=== PATIENT | female | born 1960 | race Caucasian/White ===

== ENCOUNTER → 2019-11-23 07:33 | Outpatient (CLI) | payer BC, SELFPAY ==
--- NOTE | ~2019-11-23 | US_ITS ---
EXAMINATION: US right upper quadrant DATE: 11/23/2019 08:15 INDICATION: Abnormal liver function tests. TECHNIQUE: Multiple grayscale and Doppler ultrasound images of the abdomen were obtained. COMPARISON: None FINDINGS: The visualized portions of the head, body, and tail of the pancreas are normal. There is di ffuse hepatic steatosis. No liver surface nodularity. There is normal flow in main portal vein. The g allbladder is normal in size. No gallstones or gallbladder wall thickening. There was no sonographic Shoemaker sign. The common duct is normal and measures 3 mm. IMPRESSION: 1. Diffuse hepatic steatosis. Reviewed, dictated and finalized at location A.
== END ==
PROVIDERS: PCP Family Medicine; Visit Provider Family Medicine
DX: R74.0 Nonspecific elevation of levels of transaminase and lactic acid dehydrogenase [LDH] (principal); K76.0 Fatty (change of) liver, not elsewhere classified
CPT/HCPCS: 76705

== ENCOUNTER 2020-01-26 14:17 | Emergency (ER) | payer BC, SELFPAY ==
--- NOTE | ~2020-01-26 | XR_ITS ---
XR ankle LT min 3V 01/26/2020 14:37 Indication: Left ankle pain and swelling Procedure: 4 views left ankle Comparison: No prior studies for comparison. Findings: There is a transverse nondisplaced distal fibular fracture with adjacent soft tissue swelli ng. Ankle mortise intact. There are degenerative calcaneal enthesophytes. Talar dome is normal. Impression: 1: Transverse nondisplaced distal fibular fracture. Reviewed, dictated and finalized at location A. Impression: 1: Transverse nondisplaced distal fibular fracture.
[2020-01-26 14:21] VITALS: BP 129/69; PULSE 95; RESP 12; TEMP 36.8; O2SAT 98
--- NOTE | 2020-01-26 14:38 | ED.LOWEXIN ---
HPI - Extremity Injury (Lower) General Chief Complaint: Extremity Injury, Lower Stated Complaint: INJURED L ANKLE Time Seen by Provider: 01/26/20 14:38 Source: patient and RN notes reviewed History of Present Illness HPI Narrative: Patient is a 59-year-old female who presents the urgent care with complaints of left ankle pain. Patient states that she stepped in a hole in her yard approximately 2 hours prior to arrival. Patient states she has not done anything for her pain and states that she is only feeling pain with weightbearing activity. Patient denies hitting her head or any other injuries from the fall. No other acute complaints. No acute distress noted. Patient aware of the plan of care. Some parts of this dictation were generated by voice recognition software and may contain typographical and/or grammatical inaccuracies. Related Data Home Medications Medication Instructions Recorded Confirmed aspirin 81 mg tablet,delayed 81 mg PO DAILY 06/28/19 01/26/20 release Allergies Allergy/AdvReac Type Severity Reaction Status Date / Time atorvastatin Allergy Unknown muscle pain Verified 01/26/20 14:22 Review of Systems Review of Systems: Narrative: CONSTITUTIONAL: Denies fever, chills, or sweats. EYES: Denies visual changes, redness, or discharge. ENT: Denies rhinorrhea, congestion, sore throat, or otalgia. CARDIOVASCULAR: Denies chest pain, palpitations, or edema. RESPIRATORY: Denies cough or dyspnea. GASTROINTESTINAL: Denies abdominal pain, nausea, vomiting, or diarrhea. GENITOURINARY: Denies dysuria or hematuria. SKIN: Denies rash or itching. MUSCULOSKELETAL: Reports of left ankle pain with weightbearing NEUROLOGIC: Denies headache, numbness, or weakness. All other systems reviewed are negative, except as documented in HPI. PMFSH Social History Social History (Reviewed 11/08/19 @ 09:58 by Leslie Oneill [facility]) Smoking status: Never smoker Alcohol intake: never Comments At the time of my signature, I reviewed and agree with the nursing past medical, surgical, social, and family history. There is no relevant family history pertinent to the patient complaint. Exam Narrative: Exam Narrative: GENERAL: This is a well-nourished, well-developed patient, in no apparent distress. HEAD: normocephalic, atraumatic. EYES: PERRL. Sclera clear/white. Vision is grossly intact. EARS: External ears normal NOSE: External nose normal with no obvious nasal discharge, nares without redness, no rhinorrhea. THROAT: Mucous membranes moist NECK: Neck supple SKIN: warm, intact with no suspicious lesions or rash, good texture and turgor. NEURO: awake, alert, and oriented to person, place and time. There were no obvious focal neurologic abnormalities. EXTREMITIES: Moderate edema and likely fractured left fibula/left malleolus. Mild ecchymosis to the left malleolus with moderate tenderness. Positive strong left pedal pulse with capillary refill less than 2 seconds. Range of motion not tested due to pain. Course Vital Signs Vital signs: Vital Signs Temperature 98.3 F 01/26/20 14:21 Pulse Rate 95 01/26/20 14:21 Respiratory Rate 12 01/26/20 14:21 Blood Pressure 129/69 01/26/20 14:21 Pulse Oximetry 98 01/26/20 14:21 Temperature 98.3 F 01/26/20 14:21 Pulse Rate 95 01/26/20 14:21 Respiratory Rate 12 01/26/20 14:21 Blood Pressure 129/69 01/26/20 14:21 Pulse Oximetry 98 01/26/20 14:21 reviewed Procedures Orthopedic Splinting/Casting Injury #1: Side: left Lower Extremity Injury Location: ankle OCL: posterior (short leg) Pre-Procedure Neuro Vascular Exam: normal Post-Procedure Neuro Vascular Exam: normal Other Orthopedic Equipment: crutches (home supply) Additional Comments: Posterior short leg OCL placed to the left lower extremity due to left distal fibular fracture. Patient educated on the care of the OCL. Educated on the use of crutches even
== END 2020-01-26 15:20 | disposition home or self-care (01) ==
PROVIDERS: Emergency Provider Nurse Practitioner Family; PCP Family Medicine
DX: S82.425A Nondisplaced transverse fracture of shaft of left fibula, initial encounter for closed fracture (principal); W17.2XXA Fall into hole, initial encounter; Z79.82 Long term (current) use of aspirin; E78.00 Pure hypercholesterolemia, unspecified; I10 Essential (primary) hypertension
CPT/HCPCS: 29515; 73610; 99214; G0463

== ENCOUNTER 2020-05-29 07:33 | Outpatient (CLI) | payer BC, SELFPAY ==
--- NOTE | ~2020-05-29 | MM_ITS ---
EXAMINATION: MM screening lico BI w griffin HISTORY: Screening TECHNIQUE: Craniocaudal and mediolateral oblique 3-D tomosynthesis images were obtained and synthetic 2-D images were generated. CAD analysis was submitted and interpreted. COMPARISON: Comparison to multiple prior studies sequentially, with oldest reviewed study dated 04/02. BREAST PARENCHYMAL COMPOSITION: There are scattered areas of fibroglandular density. FINDINGS: There is no evidence of suspicious mass, calcification, or architectural distortion to sugg est malignancy in either breast. There has been no suspicious interval change. IMPRESSION: 1. No mammographic evidence of malignancy. 2. Recommend routine screening mammography in one year. BI-RADS Category 1: Negative Reviewed, dictated and finalized at location A. [employer]
== END 2020-05-29 07:34 | disposition home or self-care (01) ==
LOC: ANHIMG 07:35
PROVIDERS: PCP Family Medicine; Visit Provider Family Medicine
DX: Z12.31 Encounter for screening mammogram for malignant neoplasm of breast (principal)
CPT/HCPCS: 77063; 77067

== ENCOUNTER 2021-06-19 07:20 | Outpatient (CLI) | payer BC, SELFPAY ==
--- NOTE | ~2021-06-19 | MM_ITS ---
EXAMINATION: MM screening lico BI w griffin HISTORY: Screening TECHNIQUE: Craniocaudal and mediolateral oblique 3-D tomosynthesis images were obtained and synthetic 2-D images were generated. CAD analysis was submitted and interpreted. COMPARISON: 04/29/2016 BREAST PARENCHYMAL COMPOSITION: There are scattered areas of fibroglandular density. FINDINGS: There is no evidence of suspicious mass, calcification, or architectural distortion to sugg est malignancy in either breast. There has been no suspicious interval change. IMPRESSION: 1. No mammographic evidence of malignancy. 2. Recommend routine screening mammography in one year. BI-RADS Category 1: Negative Reviewed, dictated and finalized at location A. [employer]
== END 2021-06-19 07:21 | disposition home or self-care (01) ==
LOC: ANHIMG 07:22
PROVIDERS: PCP Family Medicine; Visit Provider Family Medicine
DX: Z12.31 Encounter for screening mammogram for malignant neoplasm of breast (principal)
CPT/HCPCS: 77063; 77067

== ENCOUNTER → 2021-08-08 09:58 | Outpatient (CLI) | payer BC, SELFPAY ==
--- NOTE | ~2021-08-08 | XR_ITS ---
EXAM: XR ankle LT min 3V HISTORY: M25.572 - Pain in left ankle and joints of left foot COMPARISON: 01/26/2020 FINDINGS: No acute fracture or dislocation. Moderate joint effusion. Mild degenerative tibiotalar brenda int changes. Achilles and plantar enthesopathy. Old, small malleolus tip avulsion fracture fragment. Healed lateral malleolus avulsion fragment. IMPRESSION: No acute osseous finding. Moderate left ankle joint effusion. Reviewed, dictated and finalized at location K.
== END ==
PROVIDERS: Visit Provider Physician Assistant
DX: M25.572 Pain in left ankle and joints of left foot (principal); M25.472 Effusion, left ankle
CPT/HCPCS: 73610

== ENCOUNTER 2021-10-26 00:53 | Day surgery (SDC) | payer BC, SELFPAY ==
[2021-08-26 13:24] VITALS: BMI 34.0
[2021-10-06 15:06] VITALS: BMI 34.0
--- NOTE | 2021-10-23 13:28 | PM.HPGS ---
History of Present Illness History of Present Illness Consent: Risks, benefits, and alternatives have been discussed and questions answered. Patient agrees to proceed with procedure. Chief complaint: neoplasm screening Narrative: Phoebe Clifford is a 61 year old female referred for colon cancer screening Review of Systems Review of Systems: All systems reviewed & are unremarkable except as noted in HPI and below PMFSH Past Medical History Medical History Hepatitis C antibody test negative (12/23/16) Surgical History Surgical History H/O adenoidectomy H/O colonoscopy Family History Family History Father Diabetes mellitus Hypertension Family history of coronary artery disease Mother Diabetes mellitus Hypertension Family history of elevated blood lipids Sibling Hypertension Family history of elevated blood lipids Family history of coronary artery disease Grandparent Acute myocardial infarction, Onset Age: 40 Carcinoma of colon Family history of coronary artery disease, Onset Age: 40 Other No family history of cardiovascular disease Social History Social History Smoking status: Never smoker Alcohol intake: never Substance use: never Substance use type: does not use Living arrangements: with family Spiritual care concerns: No Meds Home Medications and Allergies Home Medications Medication Instructions Recorded Confirmed Type aspirin 81 mg tablet,delayed 81 mg PO DAILY 06/28/19 10/26/21 History release (Adult Low Dose Aspirin) cholecalciferol (vitamin D3) 50 50 mcg PO DAILY 07/14/20 10/26/21 History mcg (2,000 unit) capsule omega 0-ehn-roj-fish oil 1,200 mg 1,200 cap PO DAILY 07/14/20 10/26/21 History (144 mg-216 mg) capsule (Fish Oil) albuterol sulfate 90 mcg/actuation 2 puff inhalation Q4H PRN 07/30/20 10/26/21 Rx aerosol inhaler (ProAir HFA) shortness of breath or wheezing #8.5 grams budesonide-formoterol HFA 160 2 puff inhalation Q12H #10.2 grams 07/30/20 10/26/21 Rx mcg-4.5 mcg/actuation aerosol inhaler (Symbicort) quinapril 20 See Rx Instructions .Route 06/29/21 10/26/21 Rx mg-hydrochlorothiazide 12.5 mg .COMPLEX #90 tabs tablet simvastatin 20 mg tablet See Rx Instructions .Route 06/29/21 10/26/21 Rx .COMPLEX #90 tabs Allergies Allergy/AdvReac Type Severity Reaction Status Date / Time atorvastatin AdvReac Unknown muscle pain Verified 10/26/21 06:25 Exam Const: General: alert Orientation/consciousness: patient oriented x3 Resp: Auscultation: clear to auscultation bilaterally Cardio: Rhythm: regular rhythm GI: GI Palp: Yes Soft to palpation and No Tenderness to palpation present (GI) Neuro: General: patient oriented x3 Assessment and Plan Assessment and plan (1) Colon cancer screening: Code(s): Z12.11 - Encounter for screening for malignant neoplasm of colon Status: Acute Assessment and Plan: Colonoscopy with possible biopsy or polypectomy or cautery or injection of substances.
[2021-10-26 06:27] VITALS: BP 159/78; PULSE 79; RESP 18; TEMP 36.1; O2SAT 100; BMI 32.8
[2021-10-26] MEDS: LACTATED RINGERS 1,000 ML 150 ML IV CONT (06:38)
--- NOTE | 2021-10-26 07:16 | WPDANESEPPF ---
Anes - Initial Pre Proc Eval Procedure: Operation Date: 10/26/21 07:30 Proposed Procedures p Screening Colonoscopy - Evan Uriarte MD Date/Time: 10/26/21 07:16 Surgeon: Evan Uriarte MD Pre Op Diagnosis: neoplasm screening Patient Data Age: 61 Gender: F Height: 1.6 m Weight: 84 kg Last Vital Signs Temp 97.0 F L 10/26/21 06:27 Pulse 79 10/26/21 06:27 Resp 18 10/26/21 06:27 BP 159/78 H 10/26/21 06:27 Pulse Ox 100 10/26/21 06:27 O2 Del Method Room Air 10/26/21 06:27 Allergies Allergy/AdvReac Type Severity Reaction Status Date / Time atorvastatin AdvReac Unknown muscle pain Verified 10/26/21 06:25 Home Medications Medication Instructions Recorded Confirmed Type aspirin 81 mg tablet,delayed 81 mg PO DAILY 06/28/19 10/26/21 History release (Adult Low Dose Aspirin) cholecalciferol (vitamin D3) 50 50 mcg PO DAILY 07/14/20 10/26/21 History mcg (2,000 unit) capsule omega 8-hln-xdj-fish oil 1,200 mg 1,200 cap PO DAILY 07/14/20 10/26/21 History (144 mg-216 mg) capsule (Fish Oil) albuterol sulfate 90 mcg/actuation 2 puff inhalation Q4H PRN 07/30/20 10/26/21 Rx aerosol inhaler (ProAir HFA) shortness of breath or wheezing #8.5 grams budesonide-formoterol HFA 160 2 puff inhalation Q12H #10.2 grams 07/30/20 10/26/21 Rx mcg-4.5 mcg/actuation aerosol inhaler (Symbicort) quinapril 20 See Rx Instructions .Route 06/29/21 10/26/21 Rx mg-hydrochlorothiazide 12.5 mg .COMPLEX #90 tabs tablet simvastatin 20 mg tablet See Rx Instructions .Route 06/29/21 10/26/21 Rx .COMPLEX #90 tabs Patient hx anesthesia problems: none Family hx anesthesia problems: none Results Review: All pre-operative results and documents have been reviewed as part of the pre-operative evaluation. [facility] Past Medical History Medical History (Updated 10/23/21 @ 13:28 by Evan Uriarte MD) Hepatitis C antibody test negative (12/23/16) Surgical History Surgical History H/O adenoidectomy H/O colonoscopy Family History Family History Father Diabetes mellitus Hypertension Family history of coronary artery disease Mother Diabetes mellitus Hypertension Family history of elevated blood lipids Sibling Hypertension Family history of elevated blood lipids Family history of coronary artery disease Grandparent Acute myocardial infarction, Onset Age: 40 Carcinoma of colon Family history of coronary artery disease, Onset Age: 40 Other No family history of cardiovascular disease Social History Social History (Updated 08/07/21 @ 15:29 by ALEXUS Ferris) Smoking status: Never smoker Alcohol intake: never Substance use: never Substance use type: does not use Living arrangements: with family Spiritual care concerns: No Anes - Eval Final PreProcedure Day of Procedure 10/26/21 07:16 Patient weight: obese Heart: regular rate and rhythm Lungs: clear to auscultation Airway: Mallampati scale class II Neurological: alert and oriented Last oral intake: >/= 8 hours ASA classification: III Emergent: no Anesthetic plan: proceed Anesthesia type and monitoring: general GIVS and standard monitoring Results Review: All pre-operative results and documents have been reviewed as part of the pre-operative evaluation. Informed Consent: The patient's anesthetic plan and its attendant risks and benefits were discussed with the patient/family/POA. Questions were solicited and answers provided to the satisfaction of the patient/family/POA.
[2021-10-26 07:44] VITALS: BP 117/68; PULSE 75; RESP 27; O2SAT 97
[2021-10-26 07:54] VITALS: BP 140/92; PULSE 79; RESP 21; O2SAT 100
[2021-10-26 08:04] VITALS: BP 150/88; PULSE 76; RESP 20; O2SAT 100
== END 2021-10-26 08:10 | disposition home or self-care (01) ==
PROVIDERS: PCP Family Medicine; Visit Provider Internal Medicine Gastroenterology
PROC: 0DJD8ZZ Inspection of Lower Intestinal Tract, Via Natural or Artificial Opening Endoscopic (ICD-10-PCS; CPT 45378; principal; 2021-10-26 07:30)
DX: Z12.11 Encounter for screening for malignant neoplasm of colon (principal); Z79.82 Long term (current) use of aspirin; Z79.51 Long term (current) use of inhaled steroids; E66.9 Obesity, unspecified; Z68.32 Body mass index [BMI] 32.0-32.9, adult
CPT/HCPCS: 45378; J2001; J2704; J7120

== ENCOUNTER 2022-06-29 08:03 | Outpatient (CLI) | payer BC, SELFPAY ==
--- NOTE | 2022-06-29 08:14 | EST_ITS ---
Patient Info Name: Phoebe Clifford Age: 61 years : 1960 Gender: Female Ht: 65 in Wt: 195 lbs BSA: 2.05 m2 HR: 76 bpm BP: 117 / 67 mmHg Heart Rhythm: Sinus Rhythm Technical Quality: Fair Exam Date: 06/29/2022 8:37 AM Exam Location: [facility] Pulmonary Patient Status: Outpatient Admit Date: 06/29/2022 Staff Ordering Physician: Hilda Hunt MD Expansion Joint Builder: Myah Gudino RDCS Attending Provider: Referring Physician: Gilbert QUINN; Exam Type: CA stress echo Study Info Indications - light headed R07.89 - Other chest pain Treadmill exercise stress echocardiogram is performed. Summary 1. 1. Negative Rusty exercise stress test for ischemic ST changes by ECG criteria. 2. 2. Good functional capacity, achieving 8 METs of workload. 3. 3. Hypertensive response to exercise. 4. 4. Appropriate HR response to exercise. 5. 5. Appropriate HR recovery at 1 minute post exercise. 6. 6. Negative stress echocardiogram for ischemia by wall motion analysis. 7. 7. Patient informed of the above results. Stress Echo Findings Left Ventricle Appropriate increase in LV endocardial thickening with systole. Appropriate augmentation of contractility with systole. No wall motion abnormality. Left Ventricle Normal LV systolic function, no wall motion abnormality. Protocol: Rusty Stress ECG Details Stage: REST Duration (min): 0 min : 50 sec Speed (mph): 0.0 Grade (%): 0 HR (bpm): 76 SBP (mmHg): 117 DBP (mmHg): 67 METS: --- Stage: REST Duration (min): 9 min : 35 sec Speed (mph): 0.0 Grade (%): 0 HR (bpm): 81 SBP (mmHg): 117 DBP (mmHg): 67 METS: --- Stage: STAGE 1 Duration (min): 1 min : 0 sec Speed (mph): 1.7 Grade (%): 10 HR (bpm): 98 SBP (mmHg): 117 DBP (mmHg): 67 METS: --- Stage: STAGE 1 Duration (min): 2 min : 0 sec Speed (mph): 1.7 Grade (%): 10 HR (bpm): 107 SBP (mmHg): 117 DBP (mmHg): 67 METS: --- Stage: STAGE 1 Duration (min): 3 min : 0 sec Speed (mph): 1.7 Grade (%): 10 HR (bpm): 108 SBP (mmHg): 159 DBP (mmHg): 69 METS: --- Stage: STAGE 2 Duration (min): 1 min : 0 sec Speed (mph): 2.5 Grade (%): 12 HR (bpm): 124 SBP (mmHg): 159 DBP (mmHg): 69 METS: --- Stage: STAGE 2 Duration (min): 2 min : 0 sec Speed (mph): 2.5 Grade (%): 12 HR (bpm): 133 SBP (mmHg): 205 DBP (mmHg): 60 METS: --- Stage: STAGE 2 Duration (min): 3 min : 0 sec Speed (mph): 2.5 Grade (%): 12 HR (bpm): 146 SBP (mmHg): 207 DBP (mmHg): 70 METS: --- Stage: STAGE 3 Duration (min): 0 min : 31 sec Speed (mph): 0.0 Grade (%): 0 HR (bpm): 159 SBP (mmHg): 207 DBP (mmHg): 70 METS: --- Stage: RECOVERY Duration (min): 0 min : 28 sec Speed (mph): 0.0 Grade (%): 0 HR (bpm): 145 SBP (mmHg): 192 DBP (mmHg): 71 METS: --- Stage: RECOV
--- NOTE | 2022-07-02 12:34 | WPDHOLTEREM ---
Holter/Event Monitor Holter/Event Monitor Date of procedure: 06/29/22 Holter/Event Procedure: 48 Hr Holter Monitor Indications: Chest pain Conclusion: 1. 48 hour holter monitor on 06/29/22. 2. Underlying rhythm is sinus rhythm. HR range 59-121 bpm; average HR 81 bpm. 3. There are 4 premature supraventricular complexes and 1 supraventricular couplet. No supraventricular tachycardia. 4. There are 3 premature ventricular complexes. No ventricular tachycardia. 5. No sinoatrial or atrioventricular blocks. No significant pauses greater than 2 seconds. 6. No symptoms available for correlation.
== END 2022-06-29 08:04 | disposition home or self-care (01) ==
PROVIDERS: PCP Family Medicine; Visit Provider Family Medicine
DX: R07.89 Other chest pain (principal); R55 Syncope and collapse; Z82.49 Family history of ischemic heart disease and other diseases of the circulatory system
CPT/HCPCS: 93225; 93226; 93351

== ENCOUNTER 2022-08-12 07:03 | Outpatient (CLI) | payer BC, SELFPAY ==
--- NOTE | ~2022-08-12 | MM_ITS ---
EXAMINATION: MM screening lico BI w griffin HISTORY: Screening mammogram TECHNIQUE: Craniocaudal and mediolateral oblique 3-D tomosynthesis images were obtained and synthetic 2-D images were generated. CAD analysis was submitted and interpreted. COMPARISON: June 19, 2021, May 29, 2020, May 14, 2019 bilateral screening mammogram exami [place] BREAST PARENCHYMAL COMPOSITION: There are scattered areas of fibroglandular density. FINDINGS: There is no evidence of suspicious mass, calcification, or architectural distortion to sugg est malignancy in either breast. There has been no suspicious interval change. IMPRESSION: 1. No mammographic evidence of malignancy. 2. Recommend routine screening mammography in one year. BI-RADS Category 1: Negative Reviewed, dictated and finalized at location A.
== END 2022-08-12 07:04 | disposition home or self-care (01) ==
PROVIDERS: PCP Family Medicine; Visit Provider Family Medicine
DX: Z12.31 Encounter for screening mammogram for malignant neoplasm of breast (principal)
CPT/HCPCS: 77063; 77067

== ENCOUNTER 2023-08-19 07:56 | Outpatient (CLI) | payer BC, SELFPAY ==
--- NOTE | ~2023-08-19 | MM_ITS ---
EXAMINATION: MM screening lico BI w griffin HISTORY: Screening TECHNIQUE: Craniocaudal and mediolateral oblique 3-D tomosynthesis images were obtained and synthetic 2-D images were generated. CAD analysis was submitted and interpreted. COMPARISON: Comparison to multiple prior studies sequentially, with oldest reviewed study dated the 05/14/2019. BREAST PARENCHYMAL COMPOSITION: Not dense: There are scattered areas of fibroglandular density. FINDINGS: There is no evidence of suspicious mass, calcification, or architectural distortion to sugg est malignancy in either breast. There has been no suspicious interval change. IMPRESSION: 1. No mammographic evidence of malignancy. 2. Recommend routine screening mammography in one year. BI-RADS Category 1: Negative Reviewed, dictated and finalized at location B.
== END 2023-08-19 07:57 | disposition home or self-care (01) ==
LOC: ANHIMG 08:00
PROVIDERS: PCP Family Medicine; Visit Provider Family Medicine
DX: Z12.31 Encounter for screening mammogram for malignant neoplasm of breast (principal)
CPT/HCPCS: 77063; 77067

== ENCOUNTER 2023-12-26 17:18 | Emergency (ER) | payer BC, SELFPAY ==
[2023-12-26 17:22] VITALS: BP 127/79; PULSE 87; RESP 16; TEMP 36.6; O2SAT 99
--- NOTE | 2023-12-26 17:22 | ED.LOWEXIN ---
HPI - Extremity Injury (Lower) General Chief Complaint: Extremity Injury, Lower Stated Complaint: Swollen Lips/Injured Right Ankle Time Seen by Provider: 12/26/23 17:32 Source: patient and RN notes reviewed Mode of arrival: ambulatory Limitations: no limitations History of Present Illness HPI Narrative: [age] Year old female presents with multiple concerns. Her main concern is for 1 week she has had stinging, burning, swollen red lips. Reports they are worse in the morning. She reports she has been using Vaseline for relief. She reports she tried antihistamine without any change in symptoms. She denies any swollen tongue, trouble swallowing, trouble breathing, rash. She reports cracking in the corner of her lips. She reports she has had sensitivity issues to certain lip sticks in the past. In a separate complaint she reports chronic right heel pain that is worse when she starts walking from rest or when she gets up in the morning. She denies any injury or trauma. She denies redness, swelling, warmth to the heel. MD complaint: other (Foot pain, burning lips) Related Data Home Medications Medication Instructions Recorded Confirmed aspirin 81 mg tablet,delayed 81 mg PO DAILY 06/28/19 12/26/23 release (Adult Low Dose Aspirin) cholecalciferol (vitamin D3) 50 50 mcg PO DAILY 07/14/20 12/26/23 mcg (2,000 unit) capsule omega 2-zti-pex-fish oil 1,200 mg 1,200 cap PO DAILY 07/14/20 12/26/23 (144 mg-216 mg) capsule (Fish Oil) ascorbate calcium (vitamin C) 500 500 mg PO DAILY 06/16/22 12/26/23 mg tablet Allergies Allergy/AdvReac Type Severity Reaction Status Date / Time bupropion [From Contrave] AdvReac Intermediate felt Verified 12/26/23 17:24 weird/ mood naltrexone [From Contrave] AdvReac Intermediate felt Verified 12/26/23 17:24 weird/ mood atorvastatin AdvReac Unknown muscle pain Verified 12/26/23 17:24 Review of Systems Review of Systems: CONSTITUTIONAL: Denies malaise, chills, sweats, or fever. SKIN: Denies open skin, laceration, abrasion, redness, warmth. Reports upper and lower lip redness, mild swelling, stinging, cracked corners of her mouth MUSCULOSKELETAL: Reports right heel pain NEUROLOGIC: Denies numbness, weakness All systems reviewed & are unremarkable except as noted in HPI and below PMFSH Past Medical History Medical History (Updated 12/26/23 @ 17:41 by Filomena Vargas NP) Hepatitis C antibody test negative (12/23/16) Surgical History Surgical History H/O adenoidectomy H/O colonoscopy Family History Family History Father Diabetes mellitus Hypertension Family history of coronary artery disease Mother Diabetes mellitus Hypertension Family history of elevated blood lipids Sibling Hypertension Family history of elevated blood lipids Family history of coronary artery disease Grandparent Acute myocardial infarction, Onset Age: 40 Carcinoma of colon Family history of coronary artery disease, Onset Age: 40 Other No family history of cardiovascular disease Social History Social History (Updated 09/27/23 @ 15:12 by Juliette Sánchez MA) Smoking status: Never smoker Alcohol intake: never Substance use: never Substance use type: does not use Do You Feel Safe in your Home?: Yes Lack of Transportation: No Lack of Food: Never True Current Housing: I Have Housing Concerned About Future Housing: No Difficulty Paying Gas/Electric Bills: No Difficulty Paying for Meds: No Currently Unemployed: No Education: Associate Degree Difficulty w/ Childcare or Family Care: No Living arrangements: with family Spiritual care concerns: No Comments At time of signature, agree with nursing past medical, surgical, social and family history. There is no relevant family history pertinent to the presenting complain
[2023-12-26 17:28] VITALS: BP 127/79; PULSE 87; RESP 16; TEMP 36.6; O2SAT 99
== END 2023-12-26 17:50 | disposition home or self-care (01) ==
PROVIDERS: Emergency Provider Nurse Practitioner; PCP Family Medicine
DX: K13.0 Diseases of lips (principal); M79.671 Pain in right foot; Z79.82 Long term (current) use of aspirin
CPT/HCPCS: 99213; G0463

== ENCOUNTER 2024-10-24 08:04 | Outpatient (CLI) | payer BC, SELFPAY ==
--- NOTE | ~2024-10-24 | MM_ITS ---
EXAMINATION: MM screening lico BI w griffin HISTORY: Screening mammogram TECHNIQUE: Craniocaudal and mediolateral oblique 3-D tomosynthesis images were obtained and synthetic 2-D images were generated. CAD analysis was submitted and interpreted. COMPARISON: 08/19/2023, 08/12/2022, 06/19/2021, 05/29/2020 BREAST PARENCHYMAL COMPOSITION:Not Dense. The breasts are almost entirely fatty FINDINGS: No suspicious mass, calcification, or architectural distortion are identified in either sg ast to suggest malignancy. There has been no suspicious interval change. IMPRESSION: No mammographic evidence of malignancy. Recommend routine screening mammography in one year. BI-RADS Category 1: Negative Reviewed, dictated and finalized at location .
== END 2024-10-24 08:05 | disposition home or self-care (01) ==
LOC: ANHIMG 08:07
PROVIDERS: PCP Family Medicine; Visit Provider Family Medicine
DX: Z12.31 Encounter for screening mammogram for malignant neoplasm of breast (principal)
CPT/HCPCS: 77063; 77067

== ENCOUNTER 2025-02-12 09:33 | Outpatient (CLI) | payer BC, SELFPAY ==
--- NOTE | 2025-02-12 09:56 | ECHO_ITS ---
Patient Info Name: Phoebe Clifford Age: 64 years : 1960 Gender: Female Ht: 63 in Wt: 195 lbs BSA: 2.02 m2 HR: 78 bpm BP: 144 / 90 mmHg Technical Quality: Good Exam Date: 02/12/2025 10:07 AM Patient Status: O Admit Date: 02/12/2025 Exam Type: CA echo doppler color flow Complete two-dimensional, color flow and Doppler transthoracic echocardiogram is performed. Cogeneration Technician: Roldan Gibson III Attending Provider: Hilda Hunt MD Summary 1. Complete two-dimensional, color flow and Doppler transthoracic echocardiogram is performed. 2. Left ventricular chamber dimension is normal. 3. Left ventricular systolic function is normal, estimated at 60-65. 4. The left ventricular diastolic function is grade I diastolic dysfunction. 5. E/e' 6 is not elevated. 6. Left atrial chamber dimension is mildly enlarged. 7. There is mild aortic valve sclerosis. 8. There is trace mitral valve regurgitation. 9. There is trace tricuspid valve regurgitation. 10. No pulmonary hypertension, estimated pulmonary arterial systolic pressure is 22 mmHg. Left Ventricle E/e' 6 is not elevated. Left ventricular chamber dimension is normal. Left ventricular systolic function is normal, estimated at 60-65. The left ventricular diastolic function is grade I diastolic dysfunction. Right Ventricle Right ventricular chamber dimension is normal. Right ventricular systolic function is normal and with normal TAPSE 2.1 cm. Left Atria Left atrial chamber dimension is mildly enlarged. Right Atria Right atrial chamber dimension is normal. Aortic Valve The aortic valve is trileaflet. There is mild aortic valve sclerosis. There is no aortic valve stenosis. There is no aortic valve regurgitation. Pulmonic Valve There is no pulmonic regurgitation. Mitral Valve There is no mitral valve stenosis. There is trace mitral valve regurgitation. Tricuspid Valve There is trace tricuspid valve regurgitation. No pulmonary hypertension, estimated pulmonary arterial systolic pressure is 22 mmHg. Pericardium/Pleural There is no pericardial effusion. Inferior Vena Cava Normal inferior vena cava with >50% collapse upon inspiration consistent with normal right atrial pressure, 5 mmHg. Aorta The aortic root size at the sinus of Valsalva is normal. Left Ventricular Outflow Tract Name Value Normal LVOT 2D LVOT Diameter 2.1 cm LVOT Doppler LVOT Peak Velocity 102 cm/s LVOT Peak Gradient 4 mmHg LVOT Mean Gradient 2 mmHg LVOT VTI 22 cm LVOT VTI/AV VTI Ratio 0.8 LVOT Stroke Volume 73 ml Pulmonic Valve Name Value Normal PV Doppler PV Peak Velocity 156 cm/s PV Peak Gradient 10 mmHg PV Mean Gradient 4 mmHg Mitral Valve Name Value Normal MV Doppler MV Peak Gradient 5 mmHg MV Mean Gradient 2 mmHg MV Area (Cont Eq VTI) 3.2 cm2 MV Diastolic Function MV E Peak Velocity 53 cm/s MV A Peak Velocity 89 cm/s MV E/A 0.6 MV Decel Time (PW) 299 ms MV Annular TDI MV E/e' (Septal) 7.1 MV E/e' (Lateral) 6.1 MV E/e' (Average) 6.6 Tricuspid Valve Name Value Normal TV Regurgitation Doppler TR Peak Velocity 208 cm/s TR Peak Gradient 17 mmHg Estimated PAP/RSVP RA Pressure 5 mmHg <=5 PA Systolic Pressure 22 mmHg <36 RV Systolic Pressure 22 mmHg <36 TV Annular TDI TV Lateral Nichole s' Velocity 12.5 cm/s >=9.5 Aortic Valve Name Value Normal AV Doppler AV Peak Velocity 159 cm/s AV Peak Gradient 10 mmHg AV Mean Gradient 5 mmHg AV VTI 28 cm AV Area (Cont Eq VTI) 2.6 cm2 >=3.0 AV Area (Cont Eq Grey) 2.1 cm2 AV DI (Grey) 0.64 AV Regurgitation 2D LVOT Area 3.3 cm2 Ventricles Name Value Normal LV Dimensions 2D/MM IVS Diastolic Thickness (2D) 0.9 cm 0.6-1.0 LVID Diastole (2D) 4.5 cm 3.8-5.2 LVIW Diastolic Thickness (2D) 0.8 cm 0.6-0.9 LVID Systole (2D) 3.3 cm 2.2-3.5 LVOT Diameter 2.1 cm LV Mass (2D Cubed) 125.78 g 67.00-162.00 LV Mass Index (2D Cubed) 62 g/m2 43-95 Relative Wall Thickness (2D) 0.36 <=0.42 LV Fractional Shortening/Ejection Fraction 2D/MM LV Fractional Shortening (2D) 27 % 27-45 LV EF (2D Teichholz) 53 % LV Diastolic Volume (4C MOD) 92 ml LV EF (4C MOD) 61 % LV Diastolic Volume (2C MOD) 49 ml LV EF (2C MOD) 62 % LV Diastolic Volume (BP MOD) 73 ml 46-106 LV Diastolic Volume Index (BP MOD) 36 ml/m2 29-61 LV Systolic Volume (BP MOD) 28 ml 14-42 LV Systolic Volume Index (BP MOD) 14 ml/m2 8-24 LV EF (BP MOD) 62 % 54-74 LV Diastolic Length (4C) 7.4 cm LV Systolic Length (4C) 6.2 cm LV Stroke Volume (4C MOD) 56 ml Atria Name Value Normal LA Dimensions LA Volume (4C A-L) 40 ml LA Volume (BP A-L) 37 ml RA Dimensions RA Systolic Major [place] Length (4C) 4.9 cm 2.2-2.8 RA Area (4C) 17.6 cm2 <=18.0 Report Signatures
== END 2025-02-12 09:34 | disposition home or self-care (01) ==
LOC: ANHCARD 09:38
PROVIDERS: PCP Family Medicine; Visit Provider Family Medicine
DX: R07.89 Other chest pain (principal); I51.89 Other ill-defined heart diseases; I35.8 Other nonrheumatic aortic valve disorders; E88.810 Metabolic syndrome; Z82.49 Family history of ischemic heart disease and other diseases of the circulatory system
CPT/HCPCS: 93306